=== PATIENT | male | born 1960 | race Hispanic/Latino ===

== ENCOUNTER 2016-07-13 19:05 | Emergency (ER) | payer OTHER ==
[~2016-07-13] VITALS: Ht 162.6 cm; Wt 81.5 kg
[2016-07-13 19:16] VITALS: BP 135/79; PULSE 90; RESP 14; O2SAT 95
--- NOTE | 2016-07-13 19:21 | ED.REPORT ---
HPI-Chest Pain 40 and Over Date of Service Jul 13, 2016 ED Provider: Dr. Alejandra. A 55 year old male with a history of HTN presents to the ED from complaining of sharp, intermittent chest pain onset 3 days ago, episodes only lasting for a little bit. The pain does not seem to be caused or relieved by anything, and seems to come out of nowhere even when the patient is lying down flat. The patient does not speak Faroese, but american sign language interpreter in the room translates what he is saying. At 20:220 recheck, patient is accompanied by Faroese speaking who is acting as american sign language interpreter. The patient reports that he is in a little bit of pain right now which is described as a pinch. Pain is intermittent and usually lasts only a little bit. It seems to be caused by nothing. It hurts a little to take a deep breath. He denies any history of blood clots or heart disease. I explained that EKG is not normal. Nursing Notes Stated Complaint: CHEST PAIN SENT FROM URGENT CARE Chief Complaint: Chest Pain Nursing Notes Reviewed: Yes Allergies: Coded Allergies: No Known Allergies (Unverified , 07/13/16) General Time Seen by MD: 19:21 Chief Complaint Chest pain Hx Obtained From: Patient, Spouse Arrived By: Walk-in Sudden in Onset?: No Onset Occurred: 3 days ago Symptom Duration: Intermittent Severity: Current: Moderate Severity: Maximum: Moderate Recent Healthcare: No recent doctor visit Similar Sx Previous: No Past Medical History Past Medical History Denies history of heart disease or blood clots. Reports: Hypertension Past Surgical History Bilateral knee surgery. Hernia surgery. Reports: Appendectomy Ambulatory Status Independent Review of Systems Review of Systems Note: Mild pain with inspiration. Constitutional: Denies: Chills, Fever Respiratory: Denies: Non-productive cough Cardiovascular: Reports: Chest pain GI: Denies: Diarrhea, Vomiting Complete sys rev & neg: except as marked. Physical Exam Initial Vital Signs Vital Signs (First) Date Time Temp Pulse Resp B/P Pulse Ox O2 Delivery O2 Flow Rate FiO2 07/13/16 19:16 36.4 90 14 135/79 95 Room Air Initial VS: Reviewed General/Constitutional: Awake, Alert Respiratory / Chest: Atraumatic, Breath sounds NL, Breath sounds = bilat, No respiratory distress, No rales, No rhonchi, No wheezing Cardiovascular: Heart rate NL, Regular rhythm, Heart sounds NL, No gallop, No murmurs, No rubs Abdomen: Atraumatic, No guarding, No rebound Lower Extremity / Pelvis / MS: No swelling, No edema Skin: Atraumatic, Color NL, Warm, Dry Neurologic: Oriented X3, Speech NL Head / Eyes: Atraumatic, Normocephalic, PERRL, EOMI Upper Extremity / MS: No swelling, No edema Interpretation & Diagnostics Lab Results Interpretation Result Diagram: 07/13/16199907/13/161999 Test 07/13/16 20:00 07/13/16 22:23 White Blood Count 13.9th/mm3 (3.8-10.1) Red Blood Count 4.80mil/mm3 (4.40-5.80) Hemoglobin 14.8g/dL (13.8-17.2) Hematocrit 42.9% (41.0-50.0) Mean Corpuscular Volume 89.4fL (81-100) Mean Corpuscular Hemoglobin 30.8pg (27.0-35.0) Mean Corpuscular Hemoglobin Concent 34.5% (32.0-37.0) Red Cell Distribution Width 13.3% (12.3-15.4) Platelet Count 212bil/L (150-400) Neutrophils (%) (Auto) 49.9% (40-74) Lymphocytes (%) (Auto) 30.6% (14-46) Monocytes (%) (Auto) 5.1% (4-12) Eosinophils (%) (Auto) 13.7% (0-5) Basophils (%) (Auto) 0.4% (0-3) D-Dimer 0.73mg/L FEU (<0.50) Sodium Level 140mEq/L (134-144) Potassium Level 3.9mEq/L (3.5-5.2) Chloride Level 104mEq/L (97-108) Carbon Dioxide Level 21mmol/L (18-29) Blood Urea Nitrogen 10mg/dL (6-24) Creatinine 0.94mg/dL (0.76-1.27) Estimat Glomerular Filtration Rate 89mL/min (>59) Glucose Level 103mg/dL (60-99) Calcium Level 9.4mg/dL (8.5-10.1) Magnesium Level 2.0mg/dL (1.6-2.6) Total Bilirubin 0.5mg/dL (0.0-1.2) Aspartate Amino Transf (AST/SGOT) 20U/L (0-50) Alanine Aminotransferase (ALT/SGPT) 21U/L (0-44) Alkaline Phosphatase 64U/L (25-150) Total Protein 7.8g/dL (6.4-8.4) Albumin 4.2g/dL (3.4-5.0) Hold Coronel Top Tube Received (Received) Troponin T 0.010ug/L (0.0-0.011) ECG Interpretation ECG Interpretation: Rate is 93. Less than 1mm ST elevation V2. Time: 20:17 Interpreted by: ED physician ECG Interpretation: Rate is 89. Sinus Rythm. Still less than 1mm elevation in V2. Time: 20:34 Interpreted by: ED physician X-Ray Chest Interpretation Chest Xray Interpretation: ED physician WET Read IMPRESSION: Normal 07/13/20162025. Radiologist Interpretation: IMPRESSION: No acute cardiopulmonary findings. Dictated by: Gely Pascual M.D. on 07/13/2016 at 20:29 Approved by: Gely Pascual M.D. on 07/13/2016 at 20:29 Interpretation / Wet Read by: Wet read ED physician, Interpret - Radiologist CT Chest Interpretation PROCEDURE: CT ANGIO CHEST PULMONARY EMBOLISM ([id number]) IMPRESSION: 1. No acute pulmonary embolus. Dictated by: Gely Pascual M.D. on 07/13/2016 at 22:09 Approved by: Gely Pascual M.D. on 07/13/2016 at 22: Interpretation / Wet Read by: Interpret - Radiologist Re-Eval/Medical Decision Med Decision/Clinical Course 55-year-old hypertensive male with very atypical chest pain for 3 days. He is found to have an abnormal EKG with J-point elevation in V1 and V2. I consulted cardiology and she concurs that this is most likely not an ST elevation PR. Recommendations were for hospital observation serial troponins and stress test. This gentleman adamantly declined. His family was at the bedside and we discussed this. His family acted as interpreters. He did agree to serial troponins which we did. They were all normal. Pain was treated. At discharge he was pain-free. I did set him up follow-up for this with on- call to [facility]. I asked him return right away if he has any more chest pain. He has also start taking aspirin daily. I made it clear that the cause of his pain is uncertain and may yet be life threatening. Source of Hx: Old records Time of Eval: 20:22 Re-Evaluation/Progress Note: Rechecked patient, whose Faroese speaking is now in the room and is acting as an interpretor. The patient reports that he is in a little bit of pain right now which is described as a pinch. Pain is intermittent and usually lasts only a little bit. It seems to be caused by nothing. It hurts a little to take a deep breath. He denies any history of blood clots or heart disease. I explained that EKG is not normal. Time of Eval: 22:45 Re-Evaluation/Progress Note: Rechecked patient who is feeling better, but does not want to be admitted. Time of Eval: 23:06 Re-Evaluation/Progress Note: Rechecked patient, explained test results, diagnosis, plan for discharge and plan for follow up with Dr. Garcia. Patient understands and agrees with the plan. All questions addressed. Consultation #1: Referral / Consult Name: Estefany Beard MD Consulted With: Cardiology Call Returned at: 22:49 Note: Discussed patient case with Dr. Beard, [place]. Consultation #2: Referral / Consult Name: Estefany Beard MD Call Returned at: 23:04 Note: Discussed patient case with Dr. Beard, [place]. Explained that the patient wants to go home. Consultation #3: Referral / Consult Name: Mirna Garcia MD Call Returned at: 23:40 Septic Technician: Will see patient, Agrees with eval, Agrees with plan Note: Discusse patient case with Dr. Garcia who will see the patient in their office on . Counseled Regarding: Diagnosis, Lab results, Need for follow-up, When/why to return to ED Discharge & Departure Primary Impression: Chest pain Chest pain type: unspecified Qualified Code: R07.9 - Chest pain, unspecified Disposition: Home Patient Instructions: Chest Pain (ED) Additional Instructions: The CAT scan did not show evidence of a blood clot or other acute pathology. Your EKG is not normal. I discussed this with our ski maker wood. She strongly recommends (as do I) that you have a stress test. If you change your mind about being admitted to the hospital then come back to the emergency department. Otherwise I have consulted with Dr. Garcia who is on-call for [facility]. He can see you in the office afternoon any time. Be at the [facility] at noon on . Dr. Garcia will work you into his schedule.. Take an aspirin a day. If you develop any further chest pain then come right back to the emergency department. The cause of your pain is uncertain and needs further evaluation. El TAC no mostr evidencia de un cogulo de marlon u otra patologa aguda. [place] EKG no es normal. Habl de esto con nuestro cardilogo. [place] recomienda encarecidamente (raj yo) que usted tiene jose alfredo prueba de estrs. Si [place] de opinin acerca de ser admitido en el hospital y luego volver al departamento de emergencias. De lo contrario he consultado con el Dr. Garcia que est de humberto para la clnica [place]. l puede verte en la oficina el jueves por la tarde en cualquier momento. Estar en la clnica [place] el medioda del jueves. El Dr. Garcia le trabajar en mixon horario. [place] jose alfredo aspirina al da. Si desarrolla ms dolor en el pecho, vuelva al departamento de emergencias. La causa de mixon dolor es incierta y necesita jose alfredo evaluacin adicional. Referrals: [facility] (PCP) Mirna Garcia MD [place] Attestation Portions of this note were transcribed by Brown Quinonez. I, Dr. Alejandra personally performed the history, physical exam and medical decision-making; I reviewed and confirmed the accuracy of the information in the transcribed note. Signed by: Darwin Garcia, 07/14/2016, 0235. copies to: [facility]; Mirna Garcia MD, Todd P DO Jul 13, 2016 19:21 Brown Quinonez Jul 13, 2016 20:06
[2016-07-13 20:10] LABS: BASOPHILS % (AUTO) 0.4 % (0-3); EOSINOPHILS % (AUTO) 13.7 % (0-5); MONOCYTES % (AUTO) 5.1 % (4-12); Mean Corpuscular Hemoglobin 30.8 pg (27.0-35.0); Mean Corpuscular Volume 89.4 fL (81-100); NEUTROPHILS % (AUTO) 49.9 % (40-74); Platelet Count 212 bil/L (150-400)
[2016-07-13] MEDS ORDERED: Nitroglycerin 2% 1 Gm Ointment TOPICAL ONE (20:30)
--- NOTE | 2016-07-13 20:30 | DRSVH ---
PROCEDURE: X-RAY CHEST ONE VIEW, PORTABLE ([id number]) INDICATIONS: chest pain TECHNIQUE: One view of the chest was acquired. COMPARISON: None. FINDINGS: Surgical changes and devices: None. Lungs and pleura: No pleural effusions or pneumothorax. Lungs are clear. Mediastinum: Mediastinal contours appear normal. Heart size is normal. Bones and chest wall: No suspicious bony lesions. Overlying soft tissues appear unremarkable. IMPRESSION: No acute cardiopulmonary findings. Dictated by: Gely Pascual M.D. on 07/13/2016 at 20:29 Approved by: Gely Pascual M.D. on 07/13/2016 at 20:29
[2016-07-13 20:43] LABS: TROPONIN T < 0.010 ug/L (0.0-0.011)
[2016-07-13 20:48] VITALS: BP 126/71; PULSE 91; RESP 15; O2SAT 95
[2016-07-13] MEDS ORDERED: fentaNYL-PF 50 mCg/mL 2 mL Inj IVPUSH PRN (21:35)
[2016-07-13 22:07] VITALS: BP 112/58; PULSE 76; RESP 16; O2SAT 100
--- NOTE | 2016-07-13 22:13 | DRSVH ---
PROCEDURE: CT ANGIO CHEST PULMONARY EMBOLISM ([id number]) INDICATIONS: pleuritic chest pain, elevated ddimer TECHNIQUE: After the administration of intravenous contrast, 2 mm thick sections acquired from the pulmonary api clifford to the posterior costophrenic angles. 3-dimensional maximum intensity projection (MIP) coronal a nd sagittal reformats were then acquired through the thorax. For radiation dose reduction, the follo wing was used: automated exposure control, adjustment of mA and/or kV according to patient size. COMPARISON: None. FINDINGS: Image quality: Excellent. Pulmonary arteries: Pulmonary arteries are normal in size, and demonstrate no intraluminal filling d efects to suggest central pulmonary embolism. Lungs and pleura: Lungs are clear. No pleural effusions or pneumothorax. Central and peripheral ai rways are patent. Mediastinum: Heart size is normal, without pericardial effusion. No mediastinal or hilar adenopathy . Thoracic aorta is normal in caliber and enhancement. Esophagus is normal in caliber, without hiat al hernia. Bones and chest wall: No suspicious bony lesions. Ribs and thoracic spine appear intact throughout. Thyroid gland is unremarkable. No axillary or supraclavicular adenopathy. Abdomen: Visualized upper abdominal solid organs appear normal in the early arterial phase of enhanc ement. IMPRESSION: 1. No acute pulmonary embolus. Dictated by: Gely Pascual M.D. on 07/13/2016 at 22:09 Approved by: Gely Pascual M.D. on 07/13/2016 at 22:11
[2016-07-14 00:02] VITALS: BP 116/62; PULSE 86; RESP 16; O2SAT 94
== END 2016-07-14 00:03 | disposition home or self-care (01) ==
LOC: SED 19:05
DX: R07.9 Chest pain, unspecified (principal); I10 Essential (primary) hypertension
CPT/HCPCS: 71010; 71275; 80053; 83735; 84484; 85025; 85378; 93005; 99285; Q9967